=== PATIENT | female | born 2005 | race American Indian/Alaskan Native ===

== ENCOUNTER 2025-02-17 06:43 | Emergency (ER) | payer MEDICAID ==
[~2025-02-17] VITALS: Ht 160 cm; Wt 60.0 kg
[2025-02-17 07:23] LABS: BASOPHILS % (AUTO) 0.4 % (0-1); EOSINOPHILS # (AUTO) 0.3 X10'3 (0-0.9); EOSINOPHILS % (AUTO) 4.1 % (0-6); HEMATOCRIT 42.7 % (35.0-45.0); HEMOGLOBIN 14.6 g/dl (12.0-16.0); LYMPHOCYTES # (AUTO) 1.2 X10'3 (1.1-4.8); LYMPHOCYTES % (AUTO) 17.1 % (21-51); MEAN CORPUSCULAR HEMOGLOBIN 31.1 PG (27.0-31.0); MEAN CORPUSCULAR HGB CONC 34.3 g/dL (33.0-36.5); MEAN CORPUSCULAR VOLUME 90.7 FL (78-98); MEAN PLATELET VOLUME 9.2 FL (7.4-10.4); MONOCYTES # (AUTO) 0.7 X10'3 (0-0.9); MONOCYTES % (AUTO) 9.9 % (2-12); NEUTROPHILS # (AUTO) 4.6 X10'3 (1.8-7.7); NEUTROPHILS % (AUTO) 68.5 % (42-75); PLATELET COUNT 199 X10'3 (140-440); RED CELL DISTRIBUTION WIDTH 12.2 % (11.5-14.5); WHITE BLOOD COUNT 6.7 X10'3 (4.5-11.0)
[2025-02-17 07:37] LABS: ALANINE AMINOTRANSFERASE 16 U/L (12-78); ALBUMIN/GLOBULIN RATIO 1.1 (1.1-1.5); ALKALINE PHOSPHATASE 74 IU/L (20-180); ANION GAP 12 (8-16); ASPARTATE AMINO TRANSFERASE 15 U/L (10-37); BILIRUBIN,TOTAL 0.3 MG/DL (0.1-1.0); BLOOD UREA NITROGEN 11 MG/DL (7-18); BUN/CREATININE RATIO 10.3 (10.0-20.0); CALCIUM 8.6 MG/DL (8.5-10.1); CHLORIDE 102 MMOL/L (99-107); CREATININE 1.07 MG/DL (0.40-0.90); GLUCOSE 94 MG/DL (70-104); LIPASE 18 U/L (16-77); POTASSIUM 3.3 MMOL/L (3.5-5.1); SODIUM 140 MMOL/L (135-145); TOTAL CARBON DIOXIDE 26.2 MMOL/L (24-32); TOTAL PROTEIN 7.7 G/DL (6.4-8.2); eCRCL 69 ML/MIN; eGFR 65 ML/MIN
[2025-02-17 08:07] LABS: URINE HCG NEGATIVE (NEG)
[2025-02-17 08:10] LABS: BILIRUBIN,URINE SMALL (Neg); COLOR,URINE YELLOW (Yellow); GLUCOSE, URINE NEGATIVE (Neg); KETONES,URINE 15 mg/dl (Neg); LEUKOCYTE ESTERASE ,URINE NEGATIVE (Neg); NITRITES, URINE NEGATIVE (Neg); OCCULT BLOOD,URINE NEGATIVE (Neg); PROTEIN,URINE NEGATIVE (Neg); UROBILINOGEN,URINE 0.2 E.U/dL (0.2-1.0)
[2025-02-17 08:18] LABS: BACTERIA,URINE 1+ /HPF (Neg); CLARITY,URINE SLIGHTLY CLOUDY (Clear); MUCUS STRANDS MANY /LPF (Neg); SQUAMOUS EPITHELIAL CELL,UR MANY /LPF (FEW); UA COLLECTION TYPE CLN CATCH MIDSTREAM; WBC,URINE 0-4 /HPF (0-4)
--- NOTE | 2025-02-17 09:20 | Physician Documentation ---
History of Present Illness ~ Chief Complaint: Abdominal Pain w/vomiting Stated Complaint: ABD PAIN Time Seen by MD: 07:00 HPI 20 year old female with several days of abdominal cramping, copious watery diarrhea, reduced PO intake. Reports no fevers, urinary symptoms, vomiting. Medication Reconciliation Allergies: Coded Allergies: Penicillins (Verified Allergy, Mild, 02/17/25) amoxicillin (Verified Allergy, Unknown, 02/17/25) Past Medical History Smoking Status: Never smoker Review of Systems All Other Systems at this time: Reviewed and Negative Physical Exam Vital Signs: RN Vital Signs have been reviewed: Yes, Temperature: 97.6, Source: Temporal, Heart Rate: 85, Respiratory Rate: 14, BP: 106/73, Pulse Oximetry: 100, Weight: 60.000 Oxygen Flow Rate: 0 Physical Exam HEENT: PERRL, moist oral mucosa, EOMI Pulmonary: No respiratory distress Cardiac: RRR, no murmur, rub or gallop GI: nondistended, soft, nontender, no guarding, no rebound; no mcburney's point tenderness MSK: no deformity Skin: w/d/i, no rash Neuro: alert, nonfocal Psych: normal affect Progress Results/Orders Results/Orders Completed Orders - JAQUELINE WOODALL MD Hcg, Ur Ql (02/17/25 06:49) Cbc/Diff (02/17/25 06:49) BMP (02/17/25 06:49) Lipase (02/17/25 06:49) CMP (02/17/25 06:49) Ua W/Microscopic, Cult If Ind (02/17/25 06:49) Vital Signs 02/17/25 02/17/25 06:45 07:14 Temp 97.6 Pulse 85 85 Resp 16 14 B/P (MAP) 139/86 106/73 (84) Pulse Ox 99 100 O2 Flow Rate 0 0 Laboratory Tests Test 02/17/25 06:49 02/17/25 07:09 Urine Specimen Description Cln catch midstream Urine Color Yellow Urine Clarity Slightly cloudy Urine pH 6.0 Urine Specific [place] >=1.030 Urine Protein Negative Urine Glucose (UA) Negative Urine Ketones 15 H Urine Occult Blood Negative Urine Nitrite Negative Urine Bilirubin Small Urine Urobilinogen 0.2 Urine Leukocyte Esterase Negative Urine RBC 3-10 Urine WBC 0-4 Urine Squamous Epithelial Cells Many Urine Bacteria 1+ Urine Mucus Many Urine Culture Indicated Not ind Volume Urine Centrifuged 10 ml Urine HCG, Qualitative Negative Urine Comment White Blood Count 6.7 Red Blood Count 4.70 Hemoglobin 14.6 Hematocrit 42.7 Mean Corpuscular Volume 90.7 Mean Corpuscular Hemoglobin 31.1 H Mean Corpuscular Hemoglobin Concent 34.3 Red Cell Distribution Width 12.2 Platelet Count 199 Mean Platelet Volume 9.2 Neutrophils (%) (Auto) 68.5 Lymphocytes (%) (Auto) 17.1 L Monocytes (%) (Auto) 9.9 Eosinophils (%) (Auto) 4.1 Basophils (%) (Auto) 0.4 Neutrophils # (Auto) 4.6 Lymphocytes # (Auto) 1.2 Monocytes # (Auto) 0.7 Eosinophils # (Auto) 0.3 Basophils # (Auto) 0.0 CBC Comment Sodium Level 140 Potassium Level 3.3 L Chloride Level 102 Carbon Dioxide Level 26.2 Anion Gap 12 Blood Urea Nitrogen 11 Creatinine 1.07 H Estimated GFR/1.73 m2 65 BUN/Creatinine Ratio 10.3 Glucose Level 94 Calcium Level 8.6 Total Bilirubin 0.3 Aspartate Amino Transf (AST/SGOT) 15 Alanine Aminotransferase (ALT/SGPT) 16 Alkaline Phosphatase 74 Total Protein 7.7 Albumin 4.0 Globulin 3.7 Albumin/Globulin Ratio 1.1 Lipase 18 Chemistry Comments Medical Decision Making Findings 20 year old female with what appears to be viral gastroenteritis for several days. Exam benign, workup unremarkable for evidence of appendicitis and . Counseled, reassured, discharged with return precautions including early appendicitis. Additional Comments Ddx = viral gastroenteritis, ectopic , intrauterine , appendicitis, biliary colic Departure Disposition: HOME / SELF CARE / HOMELESS Impression: Primary Impression: Acute gastroenteritis Condition: Stable Discharge Instructions: Viral Gastroenteritis, Adult, [id number] Referrals: NO PRIMARY CARE PROVIDER (PCP) Education Educated: Patient Educated regarding: diagnosis, treatment, prognosis, need for follow up Signature Scribe Signature: . Attestation: . JAQUELINE WOODALL MD Feb 17, 2025 09:20
[2025-02-17 09:31] VITALS: BP 106/75; PULSE 85; RESP 16; TEMP 98.5; O2SAT 100
[2025-02-17] MEDS ORDERED: ONDA-243 PO (23:58)
[2025-02-17] MEDS ORDERED: DIPH-186 PO (23:58)
[2025-02-17] MEDS ORDERED: DICY10CA88 PO (23:58)
== END 2025-02-17 09:32 | disposition home or self-care (01) ==
LOC: ER 06:44
DX: K52.9 Noninfective gastroenteritis and colitis, unspecified (principal); Z88.0 Allergy status to penicillin
CPT/HCPCS: 36415; 80053; 81001; 81025; 83690; 85025; 99283

== ENCOUNTER 2025-02-17 18:22 | Emergency (ER) | payer MEDICAID ==
[~2025-02-17] VITALS: Ht 157.5 cm; Wt 56.8 kg
[2025-02-17 18:33] VITALS: TEMP 98.1
[2025-02-17 19:02] LABS: BASOPHILS % (AUTO) 0.2 % (0-1); EOSINOPHILS % (AUTO) 0.4 % (0-6); HEMATOCRIT 44.4 % (35.0-45.0); LYMPHOCYTES # (AUTO) 0.7 X10'3 (1.1-4.8); LYMPHOCYTES % (AUTO) 6.7 % (21-51); MEAN CORPUSCULAR HEMOGLOBIN 30.7 PG (27.0-31.0); MEAN CORPUSCULAR HGB CONC 33.9 g/dL (33.0-36.5); MEAN CORPUSCULAR VOLUME 90.6 FL (78-98); MEAN PLATELET VOLUME 9.6 FL (7.4-10.4); MONOCYTES # (AUTO) 0.4 X10'3 (0-0.9); MONOCYTES % (AUTO) 4.2 % (2-12); NEUTROPHILS # (AUTO) 8.8 X10'3 (1.8-7.7); NEUTROPHILS % (AUTO) 88.5 % (42-75); PLATELET COUNT 215 X10'3 (140-440); RED CELL DISTRIBUTION WIDTH 12.1 % (11.5-14.5)
[2025-02-17 19:19] LABS: ALANINE AMINOTRANSFERASE 20 U/L (12-78); ALBUMIN 4.3 G/DL (3.4-5.0); ALKALINE PHOSPHATASE 78 IU/L (20-180); ANION GAP 11 (8-16); ASPARTATE AMINO TRANSFERASE 17 U/L (10-37); BILIRUBIN,TOTAL 0.4 MG/DL (0.1-1.0); BLOOD UREA NITROGEN 10 MG/DL (7-18); BUN/CREATININE RATIO 10.1 (10.0-20.0); CALCIUM 9.1 MG/DL (8.5-10.1); CHLORIDE 102 MMOL/L (99-107); CREATININE 0.99 MG/DL (0.40-0.90); GLUCOSE 132 MG/DL (70-104); LIPASE 17 U/L (16-77); POTASSIUM 3.9 MMOL/L (3.5-5.1); SODIUM 139 MMOL/L (135-145); TOTAL CARBON DIOXIDE 25.7 MMOL/L (24-32); TOTAL PROTEIN 8.4 G/DL (6.4-8.2); eCRCL 72 ML/MIN; eGFR 72 ML/MIN
[2025-02-17] MEDS: normal saline 1000ml 1,000 ML IV ONE ×2 (22:06→22:47)
[2025-02-17] MEDS: ondansetron/PF 4mg/2ml inj IV ONE (22:06)
--- NOTE | 2025-02-17 22:42 | Physician Documentation ---
History of Present Illness Chief Complaint: Abdominal Pain Stated Complaint: VOMMITING Time Seen by MD: 21:52 OK to notify your PCP?: Yes Source: patient, family, RN/MD, RN notes reviewed, old records Mode of Arrival: Ambulatory Exam Limitations: no limitations HPI PATIENT SEEN IN BED 1 This patient is a 20 y/o female who presents to ED with abdominal pain, nausea, vomiting, and diarrhea for 4 days. Patient reports that her symptoms have been gradually worsening since onset. She was seen here earlier today, but was discharged home as her labs and workup were normal. Patient returns with her mother stating her abdominal cramps are getting worse, and that she has also been having blood in her stool which she describes as bright red in color. She notes at time of exam that she was having diarrhea very frequently, but that it has since slowed since arriving to ER. She also reports her nausea and abdominal pain have improved after fluids and medications tonight. Patient does note some camping last weekend, but denies drinking or eating anything suspicious. Patient denies any other associated symptoms at this time. Patient denies any other alleviating or exacerbating factors. Medication Reconciliation Allergies: Coded Allergies: Penicillins (Verified Allergy, Mild, 02/17/25) amoxicillin (Verified Allergy, Unknown, 02/17/25) Scheduled Diphenoxylate HCl/Atropine (Lomotil 2.5-0.025 mg Tablet), 1 TAB PO BID Scheduled PRN ONDANSETRON ODT 4mg tablet (Ondansetron Odt), 1 TAB PO Q6H PRN PRN for nausea/vomiting Discontinued Medications Dicyclomine Hcl* (Bentyl*), 1 CAP PO Q6H PRN PRN for irritable bowel symptoms Discontinued Reason: Auto Discontinued Past Medical History Past Medical History: No Pertinent History Past Surgical History: no surgical history Smoking Status: Never smoker Alcohol Use: None Drug Use: none Review of Systems All Other Systems at this time: Reviewed and Negative Gastrointestinal: Reports: abdominal pain, nausea, vomiting, diarrhea Physical Exam Vital Signs: RN Vital Signs have been reviewed: Yes, Temperature: 98.1, Source: Oral, Heart Rate: 96, Respiratory Rate: 18, BP: 113/68, Pulse Oximetry: 99, Weight: 56.820 Physical Exam General: The patient is well developed, well nourished, nontoxic appearing and is in no acute distress. Skin: [place], warm and dry with no rashes. HEENT: Head was normocephalic and atraumatic. Eyes - pupils equal, round, reactive to light and accommodation. Extraocular movements were intact. Conjunctivae were nonicteric. The mouth and oropharynx were clear with moist mucous membranes. There were no pharyngeal exudates or erythema. Neck: Supple and nontender. There was no jugular venous distention, lymphadenopathy, thyromegaly or masses. Chest: Clear to auscultation bilaterally without wheezes, rales or rhonchi. No accessory muscle use. No dullness to percussion. Heart: Rate regular and rhythmic. S1, S2. No murmurs. Palpation of the chest wall was normal. No rubs or thrills. Abdomen: Soft, nontender and nondistended. Positive bowel sounds. No guarding or rebound. No hepatosplenomegaly or palpable masses. Extremities: No cyanosis, clubbing or edema. The patient moves all extremities. Pulses were equal and symmetric. Neurologic: Cranial nerves II-XII were intact. Sensation was intact to light touch throughout. Motor strength was 5/5 in all four extremities. Deep tendon reflexes were intact in both upper and lower extremities. Psychologic: The patient was oriented to person, place and time. The patient demonstrated appropriate judgement and insight. Progress Results/Orders Reviewed/noted all lab results: Yes Results/Orders Orders - MAGNO GARCIA MD Urinalysis, Cult If Indicated (02/17/25 18:36) Hcg, Ur Ql (02/17/25 18:36) Normal Saline 1000ml (Sodium Chloride 10 (02/17/25 21:55) Culture Blood (02/17/25 22:17) Procalcitonin (02/17/25 22:17) Lacticsepsis (02/17/25 22:17) Occult Bld Stool (02/17/25 22:21) C-Diff: Collect Next Specimen (02/17/25 22:21) Completed Orders - MAGNO GARCIA MD Cbc/Diff (02/17/25 18:36) BMP (02/17/25 18:36) Lipase (02/17/25 18:36) CMP (02/17/25 18:36) Ondansetron Inj. (Zofran 4mg/2ml Vial) (02/17/25 21:55) Medications Received in ER Medications (Trade) Dose Ordered Sig/Sydnie Route PRN Reason Start Time Stop Time Status Last Admin Dose Admin Sodium Chloride 1,000 ml @ 1,000 mls/hr ONCE ONCE IV 02/17/25 21:55 02/17/25 22:54 02/17/25 22:06 1,000 MLS/HR (Zofran 4mg/2ml vial) 4 mg ONCE ONCE IV 02/17/25 21:55 02/17/25 21:56 DC 02/17/25 22:06 4 MG Vital Signs 02/17/25 02/17/25 18:33 19:26 Temp 98.1 Pulse 96 Resp 18 18 B/P (MAP) 113/68 Pulse Ox 99 Laboratory Tests Test 02/17/25 18:50 02/17/25 22:00 White Blood Count 10.0 Red Blood Count 4.90 Hemoglobin 15.0 Hematocrit 44.4 Mean Corpuscular Volume 90.6 Mean Corpuscular Hemoglobin 30.7 Mean Corpuscular Hemoglobin Concent 33.9 Red Cell Distribution Width 12.1 Platelet Count 215 Mean Platelet Volume 9.6 Neutrophils (%) (Auto) 88.5 H Lymphocytes (%) (Auto) 6.7 L Monocytes (%) (Auto) 4.2 Eosinophils (%) (Auto) 0.4 Basophils (%) (Auto) 0.2 Neutrophils # (Auto) 8.8 H Lymphocytes # (Auto) 0.7 L Monocytes # (Auto) 0.4 Eosinophils # (Auto) 0.0 Basophils # (Auto) 0.0 CBC Comment Sodium Level 139 Potassium Level 3.9 Chloride Level 102 Carbon Dioxide Level 25.7 Anion Gap 11 Blood Urea Nitrogen 10 Creatinine 0.99 H Estimated GFR/1.73 m2 72 BUN/Creatinine Ratio 10.1 Glucose Level 132 H Calcium Level 9.1 Total Bilirubin 0.4 Aspartate Amino Transf (AST/SGOT) 17 Alanine Aminotransferase (ALT/SGPT) 20 Alkaline Phosphatase 78 Total Protein 8.4 H Albumin 4.3 Globulin 4.1 Albumin/Globulin Ratio 1.0 L Lipase 17 Chemistry Comments Re-Evaluation Re-Evaluation : Re-Evaluation: Improved Progress Patient was seen and examined. Patient is given reassurance. Patient's laboratory work was obtained. Patient was treated for her abdominal pain. She received multiple doses of Bentyl as well as loperamide for diarrhea also lactated Ringer's single dose of doxycycline was given for possible infectious etiology C diff was collected. Patient's laboratory work was reassuring CBC was within normal limits chemistry showed a normal lactic acid 1.8- procalcitonin glucose of 132 however patient was having significant pain and for pain management and unclear etiology patient was then discharged home. Specific gravity was 1.030 consistent with dehydration and some trace blood. Patient did require a few repeat doses of medication but other garcia was doing well. Continuous cardiac exercise physiologist interpretation shows normal sinus rhythm heart rate 90s, no ectopy, normal, my interpretation. Pulse oximetry monitor interpretation shows normal oxygenation at 99% room air, normal, my interpretation. Medical Decision Making Additional info obtained from: old records Differential Dx:Considerations: Include: Bowel obstruction, Cholangitis, Cholelithasis, Constipation, Diverticular disease, Esophageal rupture, E sophagitis, Gastritis/PUD, Gastroenteritis, GI hemorrhage, Hernia, Hepatitis, Inflammatory BD, Ischemic bowel, Ovarian cyst/torsion, Pancreatitis, PID, Urinary obstruction, Urinary tract infection, Urolithiasis, Other Departure Time of Disposition: Disposition: HOME / SELF CARE / HOMELESS Impression: Primary Impression: Acute gastroenteritis Additional Impressions: Dehydration Abdominal pain Qualified Codes: R10.84 - Generalized abdominal pain Condition: Stable Discharge Instructions: Viral Gastroenteritis, Adult Referrals: NO PRIMARY CARE PROVIDER (PCP) Prescriptions Diphenoxylate HCl/Atropine (Lomotil 2.5-0.025 mg Tablet) 2.5 Mg-0.025 Mg Tablet 1 TAB PO BID for 3 Days, #6 TAB 0 Refills Prov: MAGNO GARCIA MD 02/17/25 ONDANSETRON ODT 4mg tablet (ONDANSETRON ODT) 4 Mg Tab.rapdis 1 TAB PO Q6H PRN PRN for nausea/vomiting for 4 Days, #16 TAB 0 Refills Prov: MAGNO GARCIA MD 02/17/25 Education Educated: Patient, Family Educated regarding: diagnosis, treatment, need for follow up Signature Scribe Signature: Scribed for Magno Garcia MD by Mirtha Nye . 02/18/25 05:39 Attestation: The note accurately reflects work and decisions made by me.Magno Garcia MD 02/17/25 22:42 MAGNO GARCIA MD Feb 17, 2025 22:42
[2025-02-17 22:47] LABS: URINE HCG NEGATIVE (NEG)
[2025-02-17 22:50] LABS: BILIRUBIN,URINE SMALL (Neg); CLARITY,URINE CLEAR (Clear); COLOR,URINE YELLOW (Yellow); GLUCOSE, URINE NEGATIVE (Neg); KETONES,URINE 40 mg/dl (Neg); LEUKOCYTE ESTERASE ,URINE NEGATIVE (Neg); NITRITES, URINE NEGATIVE (Neg); OCCULT BLOOD,URINE MODERATE (Neg); PROTEIN,URINE 30 mg/dl (Neg); UROBILINOGEN,URINE 0.2 E.U/dL (0.2-1.0)
[2025-02-17 22:54] LABS: UA COLLECTION TYPE VOIDED
[2025-02-17 23:07] LABS: BACTERIA,URINE 3+ /HPF (Neg); MUCUS STRANDS MANY /LPF (Neg); SQUAMOUS EPITHELIAL CELL,UR MODERATE /LPF (FEW); WBC,URINE 0-4 /HPF (0-4)
[2025-02-17] MEDS: diphenoxylate/atropine tablet (Lomotil) PO ONE (23:45)
[2025-02-17] MEDS ORDERED: DIPH-186 PO (23:58)
[2025-02-17] MEDS ORDERED: ONDA-243 PO (23:58)
[2025-02-17] MEDS ORDERED: DICY10CA88 PO (23:58)
[2025-02-18] MEDS: dicyclomine 10 MG capsule PO ONE ×2 (00:26→02:48)
[2025-02-18] MEDS: ringers solution, lacted 1,000 ML IV ONE (00:26)
[2025-02-18] MEDS: DOXYCYCLINE 100MG CAPSULE PO STA (00:27)
[2025-02-18] MEDS: loperamide 2mg capsule PO ONE (01:04)
[2025-02-18] MEDS: ondansetron 4mg rapidly disintigrating tab PO ONE (02:48)
[2025-02-18 02:57] VITALS: BP 113/69; PULSE 96; RESP 16; O2SAT 100
== END 2025-02-18 03:00 | disposition home or self-care (01) ==
LOC: ER 18:23
DX: K52.9 Noninfective gastroenteritis and colitis, unspecified (principal); E86.0 Dehydration; Z88.0 Allergy status to penicillin; Z88.1 Allergy status to other antibiotic agents; Z79.899 Other long term (current) drug therapy
CPT/HCPCS: 36415; 80053; 81001; 81025; 83605; 83690; 84145; 85025; 87040; 96361; 96374; 99285; J2405; J7030; J7120